=== PATIENT | female | born 1965 | race African-American/Black ===

== ENCOUNTER 2018-10-10 21:52 | Emergency (ER) | payer BC ==
[~2018-10-10] VITALS: Ht 165.1 cm; Wt 103.4 kg
[~2018-10-10 21:52] MED LIST: ASPI-482; ASPI-621; ASPI325T8 PO; CHLO25TA9 PO; CLON1PAT10 TD; DIAZ5TAB PO; ESOM20CA PO; HYDR-2155 PO; HYDR-3165 PO; ONDA4TAB10 PO
[2018-10-10 22:00] VITALS: BP 189/106
--- NOTE | 2018-10-10 22:28 | ED.ADGEN ---
Past History Past Medical History: Hypertension Past Surgical History: , Other Smoking: Non-smoker Alcohol Use: None Drug Use: None Adult General Chief Complaint Chief Complaint leg pain HPI HPI 53 years old female presented to the emergency department with right leg pain stated that started about 4 weeks ago his been getting worse describes her pain as a sharp constant pain sometimes she feels a lump most of her pain around her knee and radiates up to her right hip, She's also complaining of back pain Review of Systems Review of Systems \ HENT: Denies nasal congestion or sore throat [] Respiratory: Denies cough or shortness of breath [] Cardiovascular: No additional information not addressed in HPI [] GI: Denies abdominal pain, nausea, vomiting, bloody stools or diarrhea [] : Denies dysuria or hematuria [] Musculoskeletal: Denies back pain or joint pain [] Integument: Denies rash or skin lesions [] Current Medications Current Medications Current Medications Medications (Trade) Dose Ordered Sig/Delon Start Time Stop Time Status Last Admin Dose Admin Ketorolac Tromethamine (Toradol Im) 60 mg 1X ONCE 10/10/18 23:45 10/10/18 23:46 DC 10/10/18 23:37 60 MG Pantoprazole Sodium (Protonix) 40 mg 1X ONCE 10/10/18 23:45 10/10/18 23:46 DC 10/10/18 23:37 40 MG Allergies Allergies Allergies Coded Allergies Type Severity Reaction Last Updated Verified No Known Drug Allergies 11/25/13 No Physical Exam Physical Exam ] Neck: Normal range of motion, no tenderness, supple, no stridor. [] Cardiovascular:Heart rate regular rhythm, no murmur [] Lungs & Thorax: Bilateral breath sounds clear to auscultation [] Abdomen: Bowel sounds normal, soft, no tenderness, no masses, no pulsatile masses. [] Skin: Warm, dry, no erythema, no rash. [] Back: No tenderness, no CVA tenderness. [] Extremities: + tenderness right thigh and calf no cyanosis, no clubbing, ROM intact, no edema. [] Neurologic: Alert and oriented X 3, normal motor function, normal sensory function, no focal deficits noted. [] Current Patient Data Vital Signs Vital Signs Date Time Temp Pulse Resp B/P (MAP) Pulse Ox O2 Delivery O2 Flow Rate FiO2 10/10/18 22:00 98.3 94 20 100 Room Air Lab Results Laboratory Tests Test 10/10/18 22:29 White Blood Count 7.3 x10^3/uL (4.0-11.0) Red Blood Count 4.18 x10^6/uL (3.50-5.40) Hemoglobin 13.1 g/dL (12.0-15.5) Hematocrit 38.3 % (36.0-47.0) Mean Corpuscular Volume 92 fL (79-100) Mean Corpuscular Hemoglobin 31 pg (25-35) Mean Corpuscular Hemoglobin Concent 34 g/dL (31-37) Red Cell Distribution Width 14.4 % (11.5-14.5) Platelet Count 274 x10^3/uL (140-400) Neutrophils (%) (Auto) 59 % (31-73) Lymphocytes (%) (Auto) 31 % (24-48) Monocytes (%) (Auto) 6 % (0-9) Eosinophils (%) (Auto) 3 % (0-3) Basophils (%) (Auto) 1 % (0-3) Neutrophils # (Auto) 4.3 x10^3uL (1.8-7.7) Lymphocytes # (Auto) 2.2 x10^3/uL (1.0-4.8) Monocytes # (Auto) 0.4 x10^3/uL (0.0-1.1) Eosinophils # (Auto) 0.2 x10^3/uL (0.0-0.7) Basophils # (Auto) 0.1 x10^3/uL (0.0-0.2) Sodium Level 140 mmol/L (136-145) Potassium Level 3.5 mmol/L (3.5-5.1) Chloride Level 103 mmol/L (98-107) Carbon Dioxide Level 28 mmol/L (21-32) Anion Gap 9 (6-14) Blood Urea Nitrogen 15 mg/dL (7-20) Creatinine 1.0 mg/dL (0.6-1.0) Estimated GFR (Cockcroft-Gault) 70.2 Glucose Level 204 mg/dL (70-99) H Calcium Level 8.9 mg/dL (8.5-10.1) EKG EKG [] Radiology/Procedures Radiology/Procedures [] Course & Med Decision Making Course & Med Decision Making Pertinent Labs and Imaging studies reviewed. (See chart for details) [] Final Impression Final Impression [] Problems: (1) Osteoarthritis Qualifiers: Qualified Codes: M17.11 - Unilateral primary osteoarthritis, right knee Dragon Disclaimer Dragon Disclaimer This electronic medical record was generated, in whole or in part, using a voice recognition dictation system. LAMONT VALLE MD Oct 10, 2018 22:28
[2018-10-10 22:43] LABS: BASO # 0.1 x10^3/uL (0.0-0.2); BASO % 1 % (0-3); EOS # 0.2 x10^3/uL (0.0-0.7); EOS % 3 % (0-3); HEMATOCRIT 38.3 % (36.0-47.0); HEMOGLOBIN 13.1 g/dL (12.0-15.5); LYMPH # 2.2 x10^3/uL (1.0-4.8); LYMPH % 31 % (24-48); MEAN CORPUSCULAR HEMOGLOBIN 31 pg (25-35); MEAN CORPUSCULAR HGB CONC 34 g/dL (31-37); MEAN CORPUSCULAR VOLUME 92 fL (79-100); MONO # 0.4 x10^3/uL (0.0-1.1); MONO % 6 % (0-9); NEUT # 4.3 x10^3uL (1.8-7.7); NEUT % 59 % (31-73); PLATELET COUNT 274 x10^3/uL (140-400); RED BLOOD COUNT 4.18 x10^6/uL (3.50-5.40); RED CELL DISTRIBUTION WIDTH 14.4 % (11.5-14.5); WHITE BLOOD COUNT 7.3 x10^3/uL (4.0-11.0)
[2018-10-10 22:57] LABS: CALCIUM 8.9 mg/dL (8.5-10.1); GFR 70.2; POTASSIUM 3.5 mmol/L (3.5-5.1)
--- NOTE | 2018-10-10 23:35 | RAD ---
INDICATION: Lower back pain radiating down right leg COMPARISON: None. TECHNIQUE: Axial CT images obtained through the lumbar spine. One or more of the following individualized dose reduction techniques were utilized for this examination: 1. Automated exposure control; 2. Adjustment of the mA and/or kV according to patient size; 3. Use of iterative reconstruction technique. FINDINGS: No acute fracture or dislocation. There is some evidence of degenerative changes including facet and ligamentum flavum hypertrophy as well as disc protrusions and mild osteophyte formation. This is seen at multiple levels but is most severe at the lower lumbar spine including L3-4, L4-5 and L5-S1. IMPRESSION: 1. No acute fracture or dislocation. 2. Degenerative changes the spine with disc protrusions and osteophyte formation as well as ligamentum flavum and facet hypertrophy. Electronically signed by: Tai Gaona MD (10/10/2018 11:32 PM) [facility]
[2018-10-10] MEDS ORDERED: PANTOPRAZOLE 40 MG TABLET. PO ONE (23:45)
[2018-10-10] MEDS ORDERED: KETOROLAC 60 MG/2 ML VIAL. IM ONE (23:45)
--- NOTE | 2018-10-10 23:55 | RAD ---
INDICATION: Right leg pain COMPARISON: None. TECHNIQUE: Grayscale, color and doppler ultrasound images were obtained of the right lower extremity venous vasculature. RIGHT: No thrombus identified in the common femoral vein, femoral vein, popliteal vein or visualized calf veins. IMPRESSION: 1. No thrombus identified in deep venous system of right lower extremity. 2. Fluid is seen superior to the right knee within the soft tissues. Could be secondary to a joint effusion or within the soft tissues adjacent to the femur. Overall large in size. Electronically signed by: Tai Gaona MD (10/10/2018 11:52 PM) [facility]
[2018-10-11] MEDS ORDERED: MELO7.5T5 PO (00:15)
[2018-10-11] MEDS ORDERED: PANT20TA58 PO (00:15)
== END 2018-10-11 00:27 | disposition home or self-care (01) ==
LOC: ER 21:52
DX: M17.11 Unilateral primary osteoarthritis, right knee (principal); M54.89 Other dorsalgia; I10 Essential (primary) hypertension
CPT/HCPCS: 36415; 72131; 80048; 85025; 93971; 96372; 99284; J1885

== ENCOUNTER 2021-02-05 17:00 | Emergency (ER) | payer BC ==
[~2021-02-05] VITALS: Ht 165.1 cm; Wt 84.0 kg
[~2021-02-05 17:00] MED LIST changes: +MELO7.5T5 PO; +PANT20TA58 PO
[2021-02-05 17:05] VITALS: BP 168/104
[2021-02-05] MEDS ORDERED: ORPHENADRINE CITRATE 60 MG/2 ML VIAL. IV ONE (17:30)
[2021-02-05] MEDS ORDERED: IV NORMAL SALINE 1,000ML 1,000 ML IV ONE (17:30)
--- NOTE | 2021-02-05 17:52 | PHYS DOC ---
Past History Past Medical History: Hypertension Past Surgical History: , Other Additional Past Surgical Histo: neck fusion, breast reduction Smoking: Non-smoker Alcohol Use: None Drug Use: None General Adult EDM: Chief Complaint: MULTIPLE COMPLAINTS HPI: HPI: Patient is a [age] year old [sex] who presents with [] Review of Systems: Review of Systems: Constitutional: Denies fever or chills Eyes: Denies redness or eye pain HENT: Denies nasal congestion or sore throat Respiratory: Denies cough or shortness of breath Cardiovascular: Denies chest pain or palpitations GI: Denies abdominal pain, nausea, or vomiting : Denies dysuria or hematuria Musculoskeletal: Denies back pain or joint pain Integument: Denies rash or skin lesions Neurologic: Denies headache, focal weakness or sensory changes Complete systems were reviewed and found to be within normal limits, except as documented in this note. Current Medications: Current Meds: Current Medications Medications (Trade) Dose Ordered Sig/Delon Start Time Stop Time Status Last Admin Dose Admin Orphenadrine Citrate (Norflex) 60 mg 1X ONCE 02/05/21 17:30 02/05/21 17:32 DC Sodium Chloride 1,000 ml @ 1,000 mls/hr 1X ONCE 02/05/21 17:30 02/05/21 18:29 Allergies: Allergies: Allergies Coded Allergies Type Severity Reaction Last Updated Verified No Known Drug Allergies 11/25/13 No Physical Exam: PE: Constitutional: Well developed, well nourished, no acute distress, non-toxic appearance HENT: Normocephalic, atraumatic Eyes: PERRL, EOMI, conjunctiva normal, no discharge Neck: Normal range of motion, no tenderness, supple Lungs & Thorax: No respiratory distress, equal chest rise and fall Abdomen: Soft, no tenderness Skin: Warm, dry, no erythema, no rash Back: No tenderness, no CVA tenderness Extremities: No tenderness, ROM intact, no edema Neurologic: Alert and oriented X 3, normal motor function, normal sensory function, no focal deficits noted Psychologic: Affect normal, judgment normal Current Patient Data: Vital Signs: Vital Signs Date Time Temp Pulse Resp B/P (MAP) Pulse Ox O2 Delivery O2 Flow Rate FiO2 02/05/21 17:05 98.6 93 18 168/104 98 EKG: EKG: @1736 NSR at 84bpm, NO ST elevation, QRS 84ms, QT/QTc 410/488ms, baseline artifact to I, III, aVR, aVL, and aVF @1812 NSR at 76bpm, NO ST elevation, QRS 88ms, QT/QTc 398/452ms Radiology/Procedures: Radiology/Procedures: PROCEDURE: PORTABLE CHEST 1V XR CHEST 1V 02/05/2021 5:29 PM INDICATION: Left chest wall pain COMPARISON: 11/25/2013 TECHNIQUE: Portable frontal view of the chest is provided. FINDINGS: The cardiomediastinal silhouette is within normal limits. Lungs are clear. There are no significant pleural effusions. There is no pulmonary vascular congestion. No pneumothorax. No suspicious osseous abnormality. Anterior cervical discectomy and fusion hardware is partially profiled. IMPRESSION: There is no acute cardiopulmonary process. Electronically signed by: Karina Hall MD (02/05/2021 5:54 PM) [facility] Heart Score: C/O Chest Pain: Yes HEART Score for Chest Pain: HEART Score for Chest Pain Response (Comments) Value History Slighlty/Non-Suspicious 0 ECG Normal 0 Age >45 - < 65 1 Risk Factors 1 or 2 Risk Factors 1 Troponin < Normal Limit 0 Total 2 Risk Factors: Risk Factors: DM, Current or recent (<one month) smoker, HTN, HLP, family history of CAD, obesity. Course & Med Decision Making: Course & Med Decision Making Pertinent Labs and Imaging studies reviewed. (See chart for details) Patient stable for discharge with outpatient follow-up with PCP. Discussed findings and plan with patient, who acknowledges understanding and agreement. Ramon Disclaimer: Ramon Disclaimer: This electronic medical record was generated, in whole or in part, using a voice recognition dictation system. Departure Departure: Impression: Primary Impression: Hypertension Qualified Codes: I10 - Essential (primary) hypertension Additional Impressions: Atypical chest pain Back pain Qualified Codes: M54.6 - Pain in thoracic spine Gastritis Qualified Codes: K29.00 - Acute gastritis without bleeding Hyperglycemia Disposition: HOME / SELF CARE / HOMELESS Condition: STABLE Referrals: ELIZABET GONCALVES MD (PCP) DEVEN JO MD Patient Instructions: Back Pain, Adult, [id number], Chest Pain (Nonspecific), [id number], Diet - 2000 Calorie Diabetic, Gastritis, Adult, [id number], Hyperglycemia, [id number], Hypertension, [id number]-vw-Gwlv Additional Instructions: ICE area of discomfort 20 min on then leave off next 20 mins. Repeat several times daily as needed for next few days. Scripts Clonidine Hcl (CLONIDINE HCL) 0.1 Mg Tablet 1 TAB PO BID PRN for ELEVATED BP, SEE COMMENTS, #20 TAB Take for systolic (upper) blood pressure > 185 and/or diastolic (lower) blood pressure > 105. Prov: HARLEY GUZMAN DO 02/05/21 Famotidine (PEPCID) 20 Mg Tablet 1 TAB PO BID for Gastritis, #30 TAB Prov: HARLEY GUZMAN DO 02/05/21 Orphenadrine Citrate (ORPHENADRINE CITRATE) 100 Mg Tablet.er 1 TAB PO BID PRN for MUSCLE PAIN, #14 TAB 0 Refills Prov: HARLEY GUZMAN DO 02/05/21 HARLEY GUZMAN DO Feb 05, 2021 17:52
--- NOTE | 2021-02-05 17:56 | RAD ---
XR CHEST 1V 02/05/2021 5:29 PM INDICATION: Left chest wall pain COMPARISON: 11/25/2013 TECHNIQUE: Portable frontal view of the chest is provided. FINDINGS: The cardiomediastinal silhouette is within normal limits. Lungs are clear. There are no significant pleural effusions. There is no pulmonary vascular congestion. No pneumothora x. No suspicious osseous abnormality. Anterior cervical discectomy and fusion hardware is partially prof iled. IMPRESSION: There is no acute cardiopulmonary process. Electronically signed by: Karina Hall MD (02/05/2021 5:54 PM) TA
[2021-02-05 18:24] LABS: BASO % 0 % (0-3); EOS # 0.1 x10^3/uL (0.0-0.7); EOS % 1 % (0-3); HEMATOCRIT 41.3 % (36.0-47.0); HEMOGLOBIN 14.3 g/dL (12.0-15.5); LYMPH # 2.5 x10^3/uL (1.0-4.8); LYMPH % 37 % (24-48); MEAN CORPUSCULAR HEMOGLOBIN 32 pg (25-35); MEAN CORPUSCULAR HGB CONC 35 g/dL (31-37); MEAN CORPUSCULAR VOLUME 92 fL (79-100); MONO # 0.4 x10^3/uL (0.0-1.1); MONO % 5 % (0-9); NEUT # 3.9 x10^3uL (1.8-7.7); NEUT % 56 % (31-73); PLATELET COUNT 245 x10^3/uL (140-400); RED BLOOD COUNT 4.52 x10^6/uL (3.50-5.40); RED CELL DISTRIBUTION WIDTH 13.5 % (11.5-14.5); WHITE BLOOD COUNT 6.8 x10^3/uL (4.0-11.0)
[2021-02-05 18:29] LABS: CALCIUM 9.4 mg/dL (8.5-10.1); CREATININE 1.1 mg/dL (0.6-1.0); GFR 62.4; POTASSIUM 3.7 mmol/L (3.5-5.1)
[2021-02-05 18:47] LABS: ALBUMIN 3.4 g/dL (3.4-5.0); ALBUMIN/GLOBULIN RATIO 0.9 (1.0-1.7); MAGNESIUM 1.8 mg/dL (1.8-2.4); TOTAL BILIRUBIN 0.4 mg/dL (0.2-1.0); TOTAL PROTEIN 7.2 g/dL (6.4-8.2)
--- NOTE | 2021-02-05 19:01 | EKG ---
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
--- NOTE | 2021-02-05 19:10 | EKG ---
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
[2021-02-05] MEDS ORDERED: cloNIDine HCL 0.1 MG TABLET PO ONE (19:15)
[2021-02-05 20:14] LABS: CLARITY,URINE HAZY; COLOR,URINE YELLOW
[2021-02-05 20:15] LABS: BACTERIA,URINE FEW /HPF (0-FEW); BILIRUBIN,URINE NEG (NEG); GLUCOSE,URINE >=1000 mg/dL (NEG); NITRITE,URINE NEG (NEG); SQUAMOUS EPITHELIAL CELL,UR FEW /LPF; UROBILINOGEN,URINE 0.2 mg/dL (0.2 mg/dL); WBC,URINE RARE /HPF (0-4)
[2021-02-05] MEDS ORDERED: LIDO:MAALOX 1:1 20 ML SINGLE DOSE. PO ONE (20:15)
[2021-02-05] MEDS ORDERED: CLON0.1T PO (20:29)
[2021-02-05] MEDS ORDERED: ORPH-16 PO (20:29)
[2021-02-05] MEDS ORDERED: FAMO-63 PO (20:29)
== END 2021-02-05 21:15 | disposition home or self-care (01) ==
LOC: ER 17:00
DX: I10 Essential (primary) hypertension (principal); K29.00 Acute gastritis without bleeding; R07.89 Other chest pain; M54.6 Pain in thoracic spine; R73.9 Hyperglycemia, unspecified; Z98.890 Other specified postprocedural states
CPT/HCPCS: 36415; 71045; 80053; 81001; 82553; 83690; 83735; 83880; 84484; 85025; 93005; 96361; 96374; 99285; J2360; J7030